=== PATIENT | male | born 1950 | race Caucasian/White ===

== ENCOUNTER → 2016-09-05 | Outpatient (CLI) | payer BC ==
--- NOTE | 2016-09-05 10:53 | EKG ---
[address] [address] Measurements Intervals [place] Rate: 70 P: 59 [place]: 160 QRS: 78 QRSD: 112 T: 47 QT: 381 QTc: 401 Interpretive Statements SINUS RHYTHM INTRAVENTRICULAR CONDUCTION DELAY No previous ECG available for comparison Electronically Signed On 09-05-16 15:24:39 MST by Bridger Solares [email or web address]
== END ==
LOC: MOB RAD 10:37
PROVIDERS: ATTEND Family Medicine
DX: R07.89 Other chest pain (principal); I45.89 Other specified conduction disorders
CPT/HCPCS: 93005; 93010

== ENCOUNTER → 2017-02-03 | Outpatient (CLI) | payer BC ==
[2017-02-03 12:34] LABS: BASOPHILS # (AUTO) 0.07 10*3/UL; BASOPHILS % (AUTO) 0.7 % (0-1); EOSINOPHILS # (AUTO) 1.09 10*3/UL; EOSINOPHILS % (AUTO) 11.2 % (0-8); HEMATOCRIT 44.3 % (42.0-52.0); LYMPHOCYTES # (AUTO) 2.56 10*3/uL; MEAN CORPUSCULAR HEMOGLOBIN 30.5 PG (27-31); MEAN CORPUSCULAR HGB CONC 33.9 g/dL (33-37); MEAN PLATELET VOLUME 10.5 FL (7.4-12.2); MONOCYTES # (AUTO) 1.08 10*3/UL (0.3-0.8); MONOCYTES % (AUTO) 11.1 % (5-15); NEUTROPHILS # (AUTO) 4.92 10*3/UL; NEUTROPHILS % (AUTO) 50.4 % (50-80); RED BLOOD COUNT 4.92 10^6/uL (4.70-6.10)
[2017-02-03 12:37] LABS: PLATELET MORPHOLOGY COMMENT NORMAL MORPHOLOGY (NORM); RBC MORPHOLOGY COMMENT NORMAL MORPHOLOGY (NORM); WBC MORPHOLOGY COMMENT NORMAL MORPHOLOGY (NORM)
[2017-02-03 12:43] LABS: BLOOD UREA NITROGEN 18 mg/dL (7-22); CALCIUM 9.2 mg/dL (8.7-10.7); EST GLOMERULAR FILTRATION > 60 (>60 ml/min/1.73m(2)); SERUM ALBUMIN 4.1 g/dL (3.5-4.8)
[2017-02-03 12:54] LABS: HEMOGLOBIN A1C 4.92 % (4.2-6.0)
== END ==
LOC: MOB LAB 11:20
PROVIDERS: ATTEND Family Medicine
DX: K62.5 Hemorrhage of anus and rectum (principal); R10.13 Epigastric pain; R73.09 Other abnormal glucose; R94.6 Abnormal results of thyroid function studies; R78.79 Finding of abnormal level of heavy metals in blood
CPT/HCPCS: 36415; 80053; 83036; 83540; 83550; 84439; 84443; 85025

== ENCOUNTER 2017-02-22 08:22 | Day surgery (SDC) | payer BC ==
[~2017-02-22 08:22] MED LIST: LIDOCAINE W/ SODIUM BICARB 0.5 ML SYR ONE; Lactated Ringers 1,000 ML PRIMARY IV ONE
[2017-02-22] MEDS ORDERED: fentaNYL Inj 100 MCG/2 ML VIAL ONE (08:44)
[2017-02-22] MEDS ORDERED: MIDAZOLAM 5 MG/1 ML ONE (08:44)
[2017-02-22] MEDS ORDERED: LIDOCAINE W/ SODIUM BICARB 0.5 ML SYR ONE (09:07)
--- NOTE | 2017-02-22 10:15 | GEN.OPNOTE ---
Colonoscopy Procedure Note Surgery Date: 02/22/17 Preoperative Diagnosis: Primary rectal bleeding Postoperative Diagnosis: Normal colonoscopy Procedure: Colonoscopy Surgeon: Angel Colindres MD Anesthesia Provider: Lucien Love CRNA Anesthesia Type: MAC Indications: Patient had a bout of bright red rectal bleeding subsided Findings: Prep : Excellent Cecum : Olympus video colonoscopy scope guided all way to the cecum. Ileocecal valve identified along with insulin for this. Patient normal. Cecum Ascending : Ascending colons within normal limits Transverse : Transverse colon had no polyps tumors or cancers Sigmoid : Descending colon and sigmoid colon had no polyps tumors or cancers Rectum : Rectum free from disease except class I hemorrhoids Digital Rectal Exam : Prostate was smooth slightly enlarged. No rectal masses A lubricated flexible colonoscope was inserted and passed to the blind end of the cecum. Additional Details: Would recommend a high-fiber diet
[2017-02-22] MEDS ORDERED: KETOROLAC 30 MG/1 ML VIAL ONE (10:17)
[2017-02-22 11:20] VITALS: RESP 16; TEMP 97.6
== END 2017-02-22 11:05 | disposition home or self-care (01) ==
LOC: SDSC 08:22
PROVIDERS: ATTEND Surgery
DX: K62.5 Hemorrhage of anus and rectum (principal); Z86.010 Personal history of colon polyps
CPT/HCPCS: 45378; J1885; J2250; J2704; J3010; J7120